=== PATIENT | female | born 1960 | race Caucasian/White ===

== ENCOUNTER 2016-10-17 10:15 | Emergency (ER) | payer BC ==
[2016-10-17 10:20] VITALS: BP 172/107
--- NOTE | 2016-10-17 11:04 | RAD ---
Indication headache and dizziness. Noncontrast images of the head were obtained. Maxillofacial CT was also performed. Maxillofacial images were reformatted in the coronal and sagittal planes. No prior imaging is available. CT head: Findings The calvarium appears unremarkable. Mastoid air cells are normally aerated. There is no subdural or epidural hematoma. The ventricles and sulci are normal. There is no mass or midline shift. No hemorrhage is seen. Intracranially and acute finding is not apparent. Maxillofacial CT: Findings Frontal sinuses are normally aerated. Ethmoid air cells also appear normal. The sphenoid sinus appears normal. There is considerable fluid and opacification of the right maxillary sinus. The left maxillary sinus appears normal. The left ostiomeatal complex appears normal. The right ostiomeatal complex is occluded. IMPRESSION: Intracranially normal study. Significant opacification of the right maxillary sinus suggesting focal sinusitis PQRS Compliance Statement: One or more of the following individualized dose reduction techniques were utilized for this examination: 1. Automated exposure control 2. Adjustment of the mA and/or kV according to patient size 3. Use of iterative reconstruction technique
[2016-10-17] MEDS ORDERED: ONDA4TAB10 PO (11:29)
[2016-10-17] MEDS ORDERED: ONDANSETRON ODT 4 MG TAB.RAPDIS PO ONE (11:45)
--- NOTE | 2016-10-17 12:08 | ED.ADGEN ---
Past History Past Medical History: Hypertension Past Surgical History: Hysterectomy Alcohol Use: None Drug Use: None Adult General HPI HPI Patient is a 56-year-old female presents emergency Department with right maxillary pain. He is she has had some nausea today. Patient reports that she has been treated for sinusitis last 1 week on Augmentin and prednisone as well as Flonase. Denies any fevers or chills. She was sent to the emergency department by her primary care physician for further imaging. Review of Systems Review of Systems Constitutional: Denies fever or chills [] Eyes: Denies change in visual acuity, redness, or eye pain [] HENT: Denies nasal congestion or sore throat [] Respiratory: Denies cough or shortness of breath [] Cardiovascular: No additional information not addressed in HPI [] GI: Denies abdominal pain, nausea, vomiting, bloody stools or diarrhea [] : Denies dysuria or hematuria [] Musculoskeletal: Denies back pain or joint pain [] Integument: Denies rash or skin lesions [] Neurologic: Denies headache, focal weakness or sensory changes [] Endocrine: Denies polyuria or polydipsia [] Current Medications Current Medications Current Medications Medications (Trade) Dose Ordered Sig/Caridad Start Time Stop Time Status Last Admin Dose Admin Ondansetron HCl (Zofran Odt) 4 mg 1X ONCE 10/17/16 11:45 10/17/16 11:46 DC Allergies Allergies Allergies Coded Allergies Type Severity Reaction Last Updated Verified Sulfa (Sulfonamide Antibiotics) Allergy Unknown 10/17/16 Yes Physical Exam Physical Exam Constitutional: Well developed, well nourished, no acute distress, non-toxic appearance. [] HENT: Normocephalic, atraumatic, bilateral external ears normal, oropharynx moist, no oral exudates, nose normal. [] Eyes: PERRLA, EOMI, conjunctiva normal, no discharge. [] Neck: Normal range of motion, no tenderness, supple, no stridor. [] Cardiovascular:Heart rate regular rhythm, no murmur [] Lungs & Thorax: Bilateral breath sounds clear to auscultation [] Abdomen: Bowel sounds normal, soft, no tenderness, no masses, no pulsatile masses. [] Skin: Warm, dry, no erythema, no rash. [] Back: No tenderness, no CVA tenderness. [] Extremities: No tenderness, no cyanosis, no clubbing, ROM intact, no edema. [] Neurologic: Alert and oriented X 3, normal motor function, normal sensory function, no focal deficits noted. [] Psychologic: Affect normal, judgement normal, mood normal. [] Current Patient Data Vital Signs Vital Signs Date Time Temp Pulse Resp B/P Pulse Ox O2 Delivery O2 Flow Rate FiO2 10/17/16 10:20 98.2 102 18 100 Room Air EKG EKG [] Radiology/Procedures Radiology/Procedures Indication headache and dizziness. Noncontrast images of the head were obtained. Maxillofacial CT was also performed. Maxillofacial images were reformatted in the coronal and sagittal planes. No prior imaging is available. CT head: Findings The calvarium appears unremarkable. Mastoid air cells are normally aerated. There is no subdural or epidural hematoma. The ventricles and sulci are normal. There is no mass or midline shift. No hemorrhage is seen. Intracranially and acute finding is not apparent. Maxillofacial CT: Findings Frontal sinuses are normally aerated. Ethmoid air cells also appear normal. The sphenoid sinus appears normal. There is considerable fluid and opacification of the right maxillary sinus. The left maxillary sinus appears normal. The left ostiomeatal complex appears normal. The right ostiomeatal complex is occluded. IMPRESSION: Intracranially normal study. Significant opacification of the right maxillary sinus suggesting focal sinusitis PQRS Compliance Statement: One or more of the following individualized dose reduction techniques were utilized for this examination: 1. Automated exposure control 2. Adjustment of the mA and/or kV according to patient size 3. Use of iterative reconstruction technique[] Course & Med Decision Making Course & Med Decision Making Pertinent Labs and Imaging studies reviewed. (See chart for details) Patient's CT is negative for anything new. She does indeed have a sinusitis. Patient is already on an appropriate and aggressive regimen for her sinusitis. Unfortunately I do not have much more to offer but did recommend that she try some sinus rinses in addition to the other medications. Patient was given further supportive care and follow-up instructions. [] Final Impression Final Impression Sinusitis [] Problems: Dragon Disclaimer Dragon Disclaimer This electronic medical record was generated, in whole or in part, using a voice recognition dictation system. ANKIT SUN MD Oct 17, 2016 12:08
== END 2016-10-17 11:32 | disposition home or self-care (01) ==
LOC: ER 10:15
DX: J32.9 Chronic sinusitis, unspecified (principal); I10 Essential (primary) hypertension; Z90.710 Acquired absence of both cervix and uterus; Z88.2 Allergy status to sulfonamides
CPT/HCPCS: 70450; 70486; 99284; Q0162

== ENCOUNTER 2018-12-26 12:11 | Inpatient (IN) | payer BC ==
[~2018-12-26] VITALS: Ht 160 cm; Wt 61.3 kg
[~2018-12-26 12:11] MED LIST: ONDA4TAB10 PO
[2018-12-26 12:41] VITALS: BP 135/81
[2018-12-26] MEDS ORDERED: ONDANSETRON ODT 4 MG TAB.RAPDIS PO PRN (13:00)
[2018-12-26] MEDS ORDERED: IV 1/2 NORMAL SALINE 1,000 ML IV PRN (13:00)
[2018-12-26] MEDS ORDERED: IOHEXOL 240 MG/ML 50ML VIAL. IV ONE (13:15)
[2018-12-26] MEDS ORDERED: CONTRAST GIVEN MC PRN (13:15)
[2018-12-26 13:56] LABS: BASO % 1 % (0-3); EOS # 0.1 x10^3/uL (0.0-0.7); EOS % 2 % (0-3); HEMATOCRIT 39.4 % (36.0-47.0); HEMOGLOBIN 13.3 g/dL (12.0-15.5); LYMPH # 1.9 x10^3/uL (1.0-4.8); LYMPH % 21 % (24-48); MEAN CORPUSCULAR HEMOGLOBIN 31 pg (25-35); MEAN CORPUSCULAR HGB CONC 34 g/dL (31-37); MEAN CORPUSCULAR VOLUME 91 fL (79-100); MONO # 0.5 x10^3/uL (0.0-1.1); MONO % 6 % (0-9); NEUT # 6.3 x10^3uL (1.8-7.7); NEUT % 71 % (31-73); PLATELET COUNT 214 x10^3/uL (140-400); RED BLOOD COUNT 4.32 x10^6/uL (3.50-5.40); RED CELL DISTRIBUTION WIDTH 13.5 % (11.5-14.5); WHITE BLOOD COUNT 8.9 x10^3/uL (4.0-11.0)
[2018-12-26 14:04] LABS: ALBUMIN 3.5 g/dL (3.4-5.0); ALBUMIN/GLOBULIN RATIO 1.1 (1.0-1.7); CALCIUM 8.8 mg/dL (8.5-10.1); CREATININE 0.7 mg/dL (0.6-1.0); GFR 85.4; POTASSIUM 3.9 mmol/L (3.5-5.1); TOTAL BILIRUBIN 0.5 mg/dL (0.2-1.0); TOTAL PROTEIN 6.8 g/dL (6.4-8.2)
[2018-12-26] MEDS ORDERED: AZIT250T6 PO (14:29)
[2018-12-26] MEDS ORDERED: LISI10TA2 PO (14:29)
[2018-12-26] MEDS ORDERED: SERT25TA4 PO (14:29)
[2018-12-26] MEDS ORDERED: FISH12002 PO (14:29)
[2018-12-26] MEDS ORDERED: IOHEXOL 240 MG/ML 50ML VIAL. PO ONE (14:30)
[2018-12-26 14:59] LABS: BACTERIA,URINE 0 /HPF (0-FEW); BILIRUBIN,URINE NEG (NEG); CLARITY,URINE CLEAR; COLOR,URINE STRAW; GLUCOSE,URINE NEG (NEG); NITRITE,URINE NEG (NEG); RBC,URINE 0 /HPF (0-2); SQUAMOUS EPITHELIAL CELL,UR OCC /LPF; UROBILINOGEN,URINE 0.2 mg/dL (0.2 mg/dL); WBC,URINE 0 /HPF (0-4)
[2018-12-26 15:35] VITALS: BP 148/92
--- NOTE | 2018-12-26 16:31 | RAD ---
EXAM: Paranasal sinuses, 4 views. HISTORY: Sinusitis. COMPARISON: None. FINDINGS: 4 views of the paranasal sinuses are obtained. There is no sinus opacification or air-fluid level. There is no significant nasal septal deviation. There is degenerative facet arthropathy involving the visualized cervical spine. IMPRESSION: No convincing radiographic evidence of sinusitis. Electronically signed by: Freida Rehman MD (12/26/2018 4:28 PM) [facility]
--- NOTE | 2018-12-26 16:44 | RAD ---
EXAM: Abdomen and pelvis CT without intravenous contrast. HISTORY: Pain. TECHNIQUE: Computed tomographic images of the abdomen and pelvis were obtained without intravenous contrast. Multiplanar reformatting was performed. *One or more of the following individualized dose reduction techniques were utilized for this examination: 1. Automated exposure control. 2. Adjustment of the mA and/or kV according to patient size. 3. Use of iterative reconstruction technique. COMPARISON: None. FINDINGS: Evaluation of the lower thorax demonstrates a 4 mm nodule within the right lower lobe along the right major fissure. There is minimal posterior dependent atelectasis. The heart is normal in size. There is no infiltrate or pleural effusion. There is a 3.8 cm hypodense lesion within the left hepatic lobe. There are 1.6 cm, 1.5 cm and 3.4 cm hypodense lesions within the right hepatic lobe. The gallbladder is unremarkable. The pancreas, spleen and adrenal glands are unremarkable. There are suspected bilateral extrarenal pelves. The kidneys are otherwise unremarkable. The urinary bladder is unremarkable. There is segmental wall thickening involving the colon from the distal transverse colon to the mid descending colon. There is surrounding pericolic stranding. There is a nodule adjacent to the splenic flexure likely due to a splenule rather than lymph node or soft tissue implant. There is no evidence of bowel obstruction. There is no free air. There is a small amount of pelvic free fluid. There is a punctate calcification within the pelvic free fluid, a nonspecific finding. There is no lymphadenopathy. There is a tiny fat-containing umbilical hernia. There is no suspicious osseous lesion. IMPRESSION: 1. Segmental colonic wall thickening from the distal transverse colon to the mid descending colon, with surrounding pericolonic stranding. The signal nature of this finding favors acute colitis of infectious or inflammatory etiologies. Follow-up to confirm resolution and exclude an underlying neoplasm. 2. Several indeterminate hypodense lesions within the liver, difficult to assess in the absence of contrast. Liver sonography may be useful for characterization. 3. Small amount of nonspecific pelvic free fluid. 4. 4 mm right lower lobe pulmonary nodule. Follow-up can be performed according to Fleischner Society criteria if clinically indicated. Fleischner Society recommendations (Radiology 2017): SOLID NODULES Solitary solid nodule <6 mm - low-risk patient: no routine follow-up required - high-risk patient: optional CT at 12 months (particularly with suspicious nodule morphology and/or upper lobe location) Solitary solid nodule 6-8 mm - low-risk patient: CT at 6-12 months, then consider CT at 18-24 months - high risk patient: CT at 6-12 months, then if persistent CT at 18-24 months Solitary solid nodule >8 mm - consider CT at 3 months, PET/CT, or tissue sampling Multiple solid nodules <6 mm - low-risk patient: no routine follow-up required - high-risk patient: optional CT at 12 months Multiple solid nodules >6 mm - low-risk patient: CT at 3-6 months, then consider CT at 18-24 months - high risk patient: CT at 3-6 months, then if persistent CT at 18-24 months SUBSOLID NODULES Solitary ground glass nodule <6 mm - no routine follow-up required Solitary ground glass nodule > or = 6 mm - CT at 6-12 months, then if persistent CT every 2 years until 5 years Solitary part solid nodule > or = 6mm - CT at 3-4 months, the if persistent and solid component remains <6 mm, annual CT until 5 years Multiple subsolid nodules <6 mm - CT at 3-6 months, then if stable consider CT at 2 and 4 years in high risk patients Multiple subsolid nodules > or = 6 mm - CT at 3-6 months, then subsequent management based on the most suspicious nodule(s) Electronically signed by: Freida Rehman MD (12/26/2018 4:41 PM) [facility]
[2018-12-26] MEDS ORDERED: ZOLPIDEM 5 MG TABLET. PO PRN (18:45)
[2018-12-26 19:39] VITALS: BP 157/85
[2018-12-26] MEDS ORDERED: diphenhydrAMINE HCL 25 MG CAPSULE PO PRN (20:45)
--- NOTE | 2018-12-26 22:12 | RAD ---
EXAM: Abdomen sonogram. HISTORY: Liver mass. TECHNIQUE: Sonographic imaging of the abdomen was performed. COMPARISON: CT obtained on the same date. FINDINGS: The liver is upper normal in size. There are at least 3 heterogeneous solid-appearing lesions within the liver, the largest of which measures 3.0 cm. The gallbladder is normal. The common bile duct is normal in caliber. The kidneys and spleen are unremarkable. The pancreas is unremarkable. The aorta is normal in caliber. The inferior vena cava is patent. IMPRESSION: 1. 3 solid liver lesions, the largest of which measures 3.[address] or MRI is indicated for characterization. 2. Otherwise, unremarkable abdomen sonogram. Electronically signed by: Freida Rehman MD (12/26/2018 10:09 PM) [facility]
[2018-12-26 23:06] VITALS: BP 141/91
[2018-12-27 05:43] VITALS: BP 121/81
[2018-12-27 06:17] LABS: BASO # 0.1 x10^3/uL (0.0-0.2); BASO % 1 % (0-3); EOS # 0.1 x10^3/uL (0.0-0.7); EOS % 2 % (0-3); HEMATOCRIT 38.5 % (36.0-47.0); HEMOGLOBIN 13.2 g/dL (12.0-15.5); LYMPH # 1.9 x10^3/uL (1.0-4.8); LYMPH % 24 % (24-48); MEAN CORPUSCULAR HEMOGLOBIN 31 pg (25-35); MEAN CORPUSCULAR HGB CONC 34 g/dL (31-37); MEAN CORPUSCULAR VOLUME 91 fL (79-100); MONO # 0.5 x10^3/uL (0.0-1.1); MONO % 6 % (0-9); NEUT # 5.4 x10^3uL (1.8-7.7); NEUT % 68 % (31-73); PLATELET COUNT 193 x10^3/uL (140-400); RED BLOOD COUNT 4.21 x10^6/uL (3.50-5.40); RED CELL DISTRIBUTION WIDTH 13.2 % (11.5-14.5)
[2018-12-27 06:25] LABS: CALCIUM 9.1 mg/dL (8.5-10.1); CREATININE 0.7 mg/dL (0.6-1.0); GFR 85.4; POTASSIUM 4.2 mmol/L (3.5-5.1)
[2018-12-27] MEDS ORDERED: IOHEXOL 350 MG/ML 100 ML VIAL. IV ONE (07:45)
[2018-12-27] MEDS: LACTOBACILLUS RHAMNOSUS GG 1 CAPSULE. PO SCH ×2 (09:20→20:17)
--- NOTE | 2018-12-27 10:23 | RAD ---
CT of the chest without comparison for elevated d-dimer. TECHNIQUE: Contiguous helical 3 mm axial images are obtained from the thoracic inlet to the base of diaphragm following administration of contrast in the pulmonary arterial phase. Nonvascular findings: Lungs are clear. There is enlargement of the left lobe of the thyroid gland, likely due to one or more left thyroid nodules measuring in excess of 3 cm. This does result in some degree of tracheal deviation to the right. Some peripheral calcifications also noted. This could be better interrogated with thyroid ultrasound. No suspicious hilar, mediastinal, or axillary lymphadenopathy is seen. Within the liver, there are 3 prominent hypodense lesions which demonstrates peripheral globular contrast enhancement, and which correspond to the abnormality seen on prior imaging studies. This appearance is most suggestive of benign hemangiomas, however findings are not pathognomonic on a single phase exam. If clinically warranted, these lesions could be better characterized with multiphase CT scan or MRI of the abdomen. There is circumferential mucosal thickening of the colon at splenic flexure, with adjacent fat stranding suggesting active inflammatory, infectious, or ischemic colitis. Vascular findings: The aorta is unremarkable. Great vessels are normal. There is no main, lobar, or segmental pulmonary arterial embolism identified. IMPRESSION: 1. No evidence of pulmonary embolism. 2. Enlarged left thyroid, resulting in tracheal deviation to the right. Consider thyroid ultrasound for better characterization of the underlying thyroid nodules. 3. Multiple hepatic lesions with imaging appearance on arterial phase most suggestive of benign hemangiomas. On this single phase examination, this appearance though highly suggestive is not pathognomonic. If clinically warranted, these lesions could be definitively characterized with multiphase CT scan of the abdomen or MRI of the abdomen. 4. Circumferential colonic inflammation with adjacent stranding in the area of the splenic flexure, consistent with infectious or inflammatory colitis. PQRS Compliance Statement: One or more of the following individualized dose reduction techniques were utilized for this examination: 1. Automated exposure control 2. Adjustment of the mA and/or kV according to patient size 3. Use of iterative reconstruction technique Electronically signed by: Bryan Patel MD (12/27/2018 10:21 AM) [facility]
[2018-12-27 11:21] VITALS: BP 126/82
[2018-12-27 15:33] VITALS: BP 123/81
[2018-12-27 19:38] VITALS: BP 134/86
[2018-12-27 23:10] VITALS: BP 119/79
--- NOTE | 2018-12-27 23:13 | PN ---
DATE: 12/27/2018 SUBJECTIVE: The patient is a 58-year-old female, who came in with severe abdominal pain, nausea, vomiting, diaphoresis and diarrhea, severe. 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 The patient; otherwise, this morning says she feels somewhat better. OBJECTIVE: VITAL SIGNS: Her blood pressure is 140/90, respiratory rate 20, pulse 94. She is afebrile. GENERAL: The patient is alert and oriented. LUNGS: Clear. CARDIOVASCULAR: Regular sinus rhythm. ABDOMEN: Soft. Definite tenderness, but improved from yesterday. Guarding is much relieved. IMAGING: An abdominal ultrasound shows 3 solid masses trying to get a situation where we can do a CT with contrast of the liver to see whether or not we can determine further on these masses if they may be metastatic or primary liver problems. In any case, she is doing better. She continues on IV antibiotics for her colitis, which is from the transverse colon down to the left descending colon. PLAN: The patient; otherwise, will continue to be monitored carefully. We will recheck her electrolytes in the morning and possibly do the test for her liver then. EDGAR JAQUEZ MD DR: WES/sanjuana JOB#: [id number] / [id number]
[2018-12-28 05:10] VITALS: BP 109/70
[2018-12-28 06:44] LABS: CALCIUM 8.6 mg/dL (8.5-10.1); CREATININE 0.7 mg/dL (0.6-1.0); GFR 85.4; POTASSIUM 3.7 mmol/L (3.5-5.1)
[2018-12-28] MEDS: LACTOBACILLUS RHAMNOSUS GG 1 CAPSULE. PO SCH (08:25)
[2018-12-28] MEDS ORDERED: IOHEXOL 300 MG/ML 75 ML VIAL. IV ONE (08:45)
[2018-12-28] MEDS ORDERED: METR-34 PO (11:14)
--- NOTE | 2018-12-28 15:41 | RAD ---
EXAM: CT ABDOMEN WITH CONTRAST. HISTORY: Liver lesions. TECHNIQUE: Computed tomography of the abdomen was performed after the intravenous administration of iodinated contrast using a multiphasic protocol. COMPARISON: 12/27/2018, 12/26/2018. FINDINGS: Lung windows through the visualized portions of the bases reveal trace bilateral pleural effusions an trace atelectasis. Bone windows reveal no suspicious lesions. A mass in hepatic segment 2/3 measures 4.5 x 3.8 cm and demonstrates progressive peripheral nodular enhancement consistent with a benign hemangioma. Another lesion consistent with a hemangioma in segment 7 measures 1.6 x 1.3 cm. A third in segment 6 measures 3.6 x 2.8 cm. A few tiny hypoattenuating lesions as best seen in segment 4A measure 8 mm or less and likely represent benign cysts. No suspicious hepatic lesions are identified. The pancreas, adrenal glands, and spleen are unremarkable. There are subcentimeter cysts in the right kidney. The left kidney is unremarkable. There is vicarious excretion of contrast in the gallbladder from a prior procedure. There are no pathologically enlarged lymph nodes. Wall thickening is again noted along the colonic splenic flexure. There is no small bowel obstruction. IMPRESSION: 1. 3 benign hepatic hemangiomas measure up to 4.5 cm. A few additional subcentimeter hepatic lesions likely represent benign cysts in the absence of known malignancy. No suspicious hepatic lesions. 2. Left colonic wall thickening consistent with colitis persists. 3. Trace bilateral pleural effusions. *One or more of the following individualized dose reduction techniques were utilized for this examination: 1. Automated exposure control. 2. Adjustment of the mA and/or kV according to patient size. 3. Use of iterative reconstruction technique. Electronically signed by: Chetan Webster MD (12/28/2018 3:38 PM) [facility]
--- NOTE | 2018-12-28 22:32 | CONS ---
DATE OF CONSULTATION: 12/28/2018 NEUROLOGY CONSULTATION REFERRING PHYSICIAN: Dr. De La Rosa. REASON FOR CONSULTATION: Rule out seizure. 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, was admitted after she presented with a 3-day history of constant abdominal pain. According to the patient, 2 days ago, she was at work where she felt sick in the stomach followed by nausea, vomiting, diarrhea, and constant abdominal pain. The patient denies hematochezia or hematemesis. The patient stated that she had a normal colonoscopy done a year ago. Currently, she denies abdominal pain. She was started on antibiotics for possible intestinal inflammation. According to the patient, while she was going to have an abdominal x-ray, she became stiff and unconscious for 10 seconds. The patient did not recall the event. She denies any previous head injuries or any history of seizure. PAST MEDICAL HISTORY: Significant for anxiety, skin cancer and hypertension. PAST SURGICAL HISTORY: Significant for hysterectomy and removal of a cyst from the face 3 days ago. FAMILY HISTORY: Noncontributory. SOCIAL HISTORY: The patient is . She has 2 children and 4 grandchildren. She denies smoking, but she drinks alcohol occasionally. CURRENT HOME MEDICATIONS: Zolpidem p.r.n. for insomnia. REVIEW OF SYSTEMS: A 10-point review of system was performed as mentioned above in the history of present illness. The patient denies nausea, vomiting, chest pain, shortness of breath, palpitation, dysarthria, dysphagia, abdominal pain, diarrhea, or constipation at this time. ALLERGIES: SULFONAMIDE, TOBRAMYCIN, AZITHROMYCIN. PHYSICAL EXAMINATION: GENERAL: Well-developed, well-nourished female, not in acute distress. She weighs 61.3 kilos. VITAL SIGNS: Blood pressure 109/70, respiratory rate 20, pulse is 78 and regular, temperature 98.1, oxygen saturation 97% on room air. HEENT: Normocephalic, atraumatic. Otherwise unremarkable. NECK: Supple. Negative for carotid bruit, lymphadenopathy or thyromegaly. LUNGS: Clear to A and P. CARDIOVASCULAR: Regular rate and rhythm, normal S1, S2. There is no S3, S4, or murmur. ABDOMEN: Soft. Bowel sounds positive. EXTREMITIES: Negative for cyanosis, clubbing or pitting edema. NEUROLOGIC: 1. Mental status: The patient is alert and oriented x 3. The speech is fluent. There is no language dysfunction. Memory, judgment, and abstracting thinking are normal. The patient denies hallucination or delusion. 2. Cranial Nerves: Visual donato are full. The pupils are reactive to light and accommodation. The extraocular movements are intact. There is no nystagmus. There is no facial motor or sensory deficit. Hearing is intact bilaterally. The palate is elevated symmetrically. Sternocleidomastoid muscles are powerful bilaterally. The patient shrugs her shoulders symmetrically, protrudes her tongue in the midline without fasciculation or atrophy. 3. Motor Examination: No focal muscle bulk was seen. The tone is normal. The strength is 5/5 throughout. 4. Sensory examination revealed normal pinprick, light touch, vibratory and position senses. Deep tendon reflexes were symmetric and active without pathologic responses. Gait and coordination are normal. LABORATORY DATA: CBC revealed white blood cells of 8000, hemoglobin 13.2, hematocrit 38.5, and platelet count 193,000. Chemistry revealed sodium of 144, potassium 3.7, chloride 106, CO2 of 30, BUN 5, creatinine 0.7, glucose 82, and calcium 8.8. Urinalysis is negative for urinary tract infections. Coagulation revealed elevated D-dimer. DIAGNOSTIC DATA: Chest CT angio revealed no evidence of pulmonary embolism, but it showed a large left thyroid and multiple hepatic lesions suggestive of benign hemangiomas and inflammatory colitis. Liver ultrasound revealed 3 solid liver lesions. Abdomen and pelvic CT scan revealed segmental colonic wall thickening suggestive of acute colitis, and several hypodense lesions within the liver. IMPRESSION: 1. Questionable seizure-like activities consistent with 10-second spell of stiffness without obvious convulsions, etiology uncertain, probably due to dehydration, but epileptic seizure could not be ruled out entirely at this time: 2. Multiple colon and liver nodular lesions suggestive of inflammatory process. RECOMMENDATIONS: 1. The patient to wait for abdominal CT scan this morning. 2. If the patient has seizure-like activities, we will arrange for an EEG to be done on an outpatient basis and treat it accordingly. Otherwise, we will continue with current management initiated by Dr. De La Rosa. M Linh MARROQUIN MD DR: PHIL/sanjuana JOB#: [id number] / [id number]
--- NOTE | 2018-12-30 15:06 | DS ---
DATE OF DISCHARGE: 12/28/2018 HOSPITAL COURSE: A 58-year-old female with severe abdominal pain, nausea, vomiting, diaphoresis and severe diarrhea up to 10 stools a day. The patient had an abdominal CT scan, which showed colitis, acute. The patient was placed on IV antibiotic therapy, also noted to have a 4 mm pulmonary nodule. Her sinuses were clear. Ultrasound showed three solid masses in her liver, but they turned out to be hemangiomas In any case, with the IV antibiotic therapy, the patient made excellent progress during the rest of her hospitalization. She did have a marked elevated D-dimer. The patient did show an enlarged left thyroid with no clots. The patient made good progress. She was discharged home on a soft diet, antibiotics, see MRAD. IMPRESSION: Colitis of the large bowel. Multiple hemangiomas of the liver, enlarged left thyroid. The patient will be on a soft diet, decreased activity, see MRAD. EDGAR JAQUEZ MD DR: WES/sanjuana JOB#: [id number] / [id number]
== END 2018-12-28 11:45 | disposition home or self-care (01) | DRG 392 ==
LOC: 1 SOUTH 12:11
PROVIDERS: ADMIT Family Medicine; ATTEND Family Medicine
DX: K52.9 Noninfective gastroenteritis and colitis, unspecified (principal); E86.0 Dehydration; G40.909 Epilepsy, unspecified, not intractable, without status epilepticus; K63.9 Disease of intestine, unspecified; F41.9 Anxiety disorder, unspecified; I10 Essential (primary) hypertension; Z85.828 Personal history of other malignant neoplasm of skin; Z90.710 Acquired absence of both cervix and uterus; Z88.1 Allergy status to other antibiotic agents; Z88.2 Allergy status to sulfonamides; D18.03 Hemangioma of intra-abdominal structures
CPT/HCPCS: 36415; 70220; 71275; 74160; 74176; 76700; 80048; 80053; 81001; 82150; 83690; 83735; 84443; 85025; 85379; 85651; J1956; J3010; J3490; J7030; Q9966; Q9967

== ENCOUNTER → 2019-08-21 | Outpatient (CLI) | payer BC ==
[~2019-08-21] MED LIST changes: +AZIT250T6 PO; +FISH12002 PO; +LISI10TA2 PO; +METR-34 PO; +SERT25TA4 PO
[2019-08-21 17:56] LABS: BASO # 0.1 x10^3/uL (0.0-0.2); BASO % 1 % (0-3); EOS # 0.1 x10^3/uL (0.0-0.7); EOS % 2 % (0-3); HEMATOCRIT 42.1 % (36.0-47.0); HEMOGLOBIN 14.2 g/dL (12.0-15.5); LYMPH # 1.3 x10^3/uL (1.0-4.8); LYMPH % 15 % (24-48); MEAN CORPUSCULAR HEMOGLOBIN 31 pg (25-35); MEAN CORPUSCULAR HGB CONC 34 g/dL (31-37); MEAN CORPUSCULAR VOLUME 92 fL (79-100); MONO # 0.6 x10^3/uL (0.0-1.1); MONO % 7 % (0-9); NEUT # 6.7 x10^3uL (1.8-7.7); NEUT % 76 % (31-73); PLATELET COUNT 215 x10^3/uL (140-400); RED BLOOD COUNT 4.56 x10^6/uL (3.50-5.40); RED CELL DISTRIBUTION WIDTH 13.4 % (11.5-14.5); WHITE BLOOD COUNT 8.7 x10^3/uL (4.0-11.0)
[2019-08-21 18:00] LABS: CALCIUM 9.2 mg/dL (8.5-10.1); CREATININE 0.8 mg/dL (0.6-1.0); GFR 72.9; POTASSIUM 3.7 mmol/L (3.5-5.1)
--- NOTE | 2019-08-21 18:20 | RAD ---
Chest, PA and Lateral: Technique: PA and lateral views of the chest were obtained. History: Chest pain, cough. Comparison: None. Findings: The heart and pulmonary vasculature appear within normal limits. The lungs are clear. The pleural margins are clear. Impression: No acute chest process is seen. Electronically signed by: Shad Ramirez MD (08/21/2019 6:17 PM) [facility]
[2019-08-21 18:22] LABS: INFLUENZA A PATIENT NEGATIVE (NEGATIVE); INFLUENZA B PATIENT NEGATIVE (NEGATIVE)
[2019-08-22 13:36] LABS: FREE T4 0.94 ng/dL (0.76-1.46); THYROID STIM HORMONE (TSH) 1.639 uIU/mL (0.358-3.740)
== END | disposition home or self-care (01) ==
LOC: RAD 16:49
PROVIDERS: ATTEND Family Medicine
DX: R00.8 Other abnormalities of heart beat (principal); J20.8 Acute bronchitis due to other specified organisms; R07.89 Other chest pain
CPT/HCPCS: 36415; 71046; 80048; 82550; 84439; 84443; 84484; 85025; 85379; 87804